=== PATIENT | female | born 1940 | race Caucasian/White ===

== ENCOUNTER → 2019-05-07 | Outpatient (CLI) | payer MEDICARE ==
[~2019-05-07] MED LIST: ASPI81TA45 PO; CALC-112 PO; CLON1TAB PO; ESTR0.6246 PO; ESZO3TAB28 PO; GABA100C PO; HYDR25TA6 PO; LISI-467 PO; MULT-26 PO; NORT10CA PO; OPIU10TI2 PO; PANT40TA5 PO; SIMV80TA PO; ZOLP10TA5 PO; cough medicine PO
== END | disposition home or self-care (01) ==
LOC: CFH 10:54
PROVIDERS: ATTEND Internal Medicine Cardiovascular Disease
DX: I35.1 Nonrheumatic aortic (valve) insufficiency (principal); E78.5 Hyperlipidemia, unspecified; Z87.891 Personal history of nicotine dependence
CPT/HCPCS: 93306

== ENCOUNTER → 2020-08-19 | Outpatient (CLI) | payer MEDICARE ==
[~2020-08-19] MED LIST changes: +OMNIPAQUE 350 MG/ML, 100ML BOTTLE ONE; -PANT40TA5 PO; +PANT40TA6 PO
== END | disposition home or self-care (01) ==
LOC: CFH 11:37
PROVIDERS: ATTEND Internal Medicine Geriatric Medicine
DX: K57.30 Diverticulosis of large intestine without perforation or abscess without bleeding (principal); E27.8 Other specified disorders of adrenal gland; R10.84 Generalized abdominal pain; R94.5 Abnormal results of liver function studies; K58.9 Irritable bowel syndrome, unspecified; J98.11 Atelectasis
CPT/HCPCS: 74177; Q9967

== ENCOUNTER 2020-09-01 09:50 | Day surgery (SDC) | payer MEDICARE ==
[~2020-09-01] VITALS: Ht 149.9 cm; Wt 65.7 kg
[~2020-09-01 09:50] MED LIST changes: -OMNIPAQUE 350 MG/ML, 100ML BOTTLE ONE
[2020-09-01] MEDS ORDERED: CHLORHEXIDINE 15 ML UDC ONE (10:19)
[2020-09-01] MEDS ORDERED: FURO20TA3 PO (10:54)
[2020-09-01] MEDS ORDERED: VITA1TAB19 PO (10:54)
[2020-09-01] MEDS ORDERED: LEVO50CA4 PO (10:54)
[2020-09-01] MEDS ORDERED: ZOLP10TA PO (10:54)
[2020-09-01] MEDS ORDERED: POTA10CA PO (10:54)
[2020-09-01] MEDS ORDERED: LORA-446 PO (10:54)
[2020-09-01] MEDS ORDERED: NORT10CA PO (10:54)
[2020-09-01] MEDS ORDERED: L.AC1CAP6 PO (10:54)
[2020-09-01] MEDS ORDERED: CALC1TAB PO (10:54)
[2020-09-01] MEDS ORDERED: LACTATED RINGERS 1,000 ML IV SCH (11:00)
[2020-09-01] MEDS ORDERED: PLEASE ENTER HEIGHT AND WEIGHT MC SCH (11:00)
[2020-09-01 11:03] VITALS: BP 112/74
[2020-09-01] MEDS ORDERED: FENTANYL PF 100 MCG/2ML ONE (11:16)
[2020-09-01] MEDS ORDERED: ONDANSETRON 2MG/ML, 2ML ONE (11:20)
[2020-09-01] MEDS ORDERED: OMNIPAQUE 350 MG/ML, 50 ML BOTTLE ONE (11:21)
[2020-09-01 11:23] LABS: ALANINE AMINOTRANSFERASE 25 U/L (12-78); ALBUMIN 4.1 g/dL (3.4-5.0); ANION GAP 6 mmol/L (5-15); CHLORIDE 104 mmol/L (98-107); CREATININE 0.79 mg/dL (0.55-1.02)
[2020-09-01 11:25] LABS: ALKALINE PHOSPHATASE 90 U/L (45-117); BILIRUBIN,TOTAL 0.4 mg/dL (0.2-1.0); TOTAL PROTEIN 7.4 g/dL (6.4-8.2)
[2020-09-01] MEDS ORDERED: PROPOFOL 10 MG/ML, 20ML ONE (12:04)
[2020-09-01] MEDS ORDERED: SUCCINYLCHOLINE 20 MG/ML, 10ML ONE (12:05)
[2020-09-01] MEDS ORDERED: DEXAMETHASONE 4 MG/ML, 5ML ONE (12:05)
[2020-09-01] MEDS ORDERED: ROCURONIUM 10MG/ML,5ML ONE (12:05)
[2020-09-01] MEDS ORDERED: ALBUTEROL SULFATE 2.5 MG/3 ML NPPB PRN (12:30)
[2020-09-01] MEDS ORDERED: hydrALAzine 20 MG/ML, 1ML IV PRN (12:30)
[2020-09-01] MEDS ORDERED: ONDANSETRON 2MG/ML, 2ML IVPush PRN (12:30)
[2020-09-01] MEDS ORDERED: OXYcodone 5 MG/5 ML ORAL.SOL UDC PO PRN (12:30)
[2020-09-01] MEDS ORDERED: EPHEDRINE 50 MG/ML, 1ML IVPush PRN (12:30)
[2020-09-01] MEDS ORDERED: PROMETHAZINE 25 MG/ML, 1ML IVPush PRN (12:30)
[2020-09-01] MEDS ORDERED: DIPHENHYDRAMINE 50 MG/ML, 1ML IVPush PRN ×2 (12:30)
[2020-09-01] MEDS ORDERED: LABETALOL 5MG/ML, 20ML IV PRN (12:30)
[2020-09-01] MEDS ORDERED: MEPERIDINE/PF 25MG/0.5ML IVPush PRN (12:30)
[2020-09-01] MEDS ORDERED: HYDROmorphone 1 MG/ML, 1ML INJ IVPush PRN (12:30)
[2020-09-01] MEDS ORDERED: DIAZEPAM 5 MG/ML, 2ML IVPush PRN (12:30)
[2020-09-01] MEDS ORDERED: MIDAZOLAM 1 MG/ML, 2ML IV PRN (12:30)
[2020-09-01] MEDS ORDERED: FENTANYL PF 100 MCG/2ML IV PRN (12:30)
[2020-09-01] MEDS ORDERED: ACETAMINOPHEN 325 MG TABLET PO PRN (12:30)
[2020-09-01] MEDS ORDERED: PROMETHAZINE 12.5 MG SUPP PR PRN (12:30)
[2020-09-01] MEDS ORDERED: PROMETHAZINE 25 MG SUPP PR ONE (13:42)
== END 2020-09-01 15:00 | disposition home or self-care (01) ==
LOC: OUT 09:50
PROVIDERS: ATTEND Internal Medicine Geriatric Medicine
DX: R93.5 Abnormal findings on diagnostic imaging of other abdominal regions, including retroperitoneum (principal); K80.50 Calculus of bile duct without cholangitis or cholecystitis without obstruction; E78.5 Hyperlipidemia, unspecified; K21.9 Gastro-esophageal reflux disease without esophagitis; F41.9 Anxiety disorder, unspecified; Z20.822 Contact with and (suspected) exposure to COVID-19; Z79.82 Long term (current) use of aspirin; Z79.899 Other long term (current) drug therapy
CPT/HCPCS: 36415; 43259; 43262; 43264; 74328; 80053; 87635; 93005; C1769; J0330; J1100; J2405; J2704; J3010; J7120; Q9967

== ENCOUNTER → 2020-12-15 | Outpatient (CLI) | payer MEDICARE ==
[~2020-12-15] MED LIST changes: +CALC1TAB PO; +FURO20TA3 PO; +L.AC1CAP6 PO; +LEVO50CA4 PO; +LORA-446 PO; +POTA10CA PO; +REGADENOSON 0.4 MG/5 ML SYRINGE ONE; +VITA1TAB19 PO; +ZOLP10TA PO
== END | disposition home or self-care (01) ==
LOC: CFH 12:43
PROVIDERS: ATTEND Internal Medicine Cardiovascular Disease
DX: R07.89 Other chest pain (principal)
CPT/HCPCS: 78452; 93017; A9502; J2785